=== PATIENT | female | born 1965 | race Caucasian/White ===

== ENCOUNTER 2017-07-11 18:08 | Emergency (ER) | payer BC ==
[2017-07-11] MEDS ORDERED: Sodium Chloride 0.9% 1,000 ML IV ONE (18:26)
[2017-07-11] MEDS ORDERED: Ketorolac 30 MG/ML SDV IVPUSH ONE (18:26)
[2017-07-11 19:28] LABS: CHLORIDE,CL 97 mmol/L (98-110); SODIUM,NA 133 mmol/L (136-146)
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
--- NOTE | 2017-07-13 14:03 | CR ---
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 Site : 1965 Study: XRay Spine Lumbar [id number]/28/2017 7:01:11 PM Ordering Physician: Doctor Mckee Final Report: INDICATION: pain TECHNIQUE: Lumbar spine 3 view COMPARISON: None FINDINGS: Bones: No fractures or significant bone lesions. Joints: Multilevel degenerative changes. Mild rightward curvature. Soft tissues: Unremarkable. IMPRESSION: No acute abnormality of the lumbar spine. Dictated by Rodger Ward MD @ 07/11/2017 7:21:49 PM Dictated by: Rodger Ward MD @ 07/11/2017 19:21:53 (Electronic Signature) Report Signed by Proxy. [facility]
== END 2017-07-11 20:22 | disposition home or self-care (01) ==
LOC: MW.ED 18:08
DX: S30.0XXA Contusion of lower back and pelvis, initial encounter (principal); F17.210 Nicotine dependence, cigarettes, uncomplicated; Y08.89XA Assault by other specified means, initial encounter
CPT/HCPCS: 36415; 72100; 80053; 85025; 96361; 96374; 99284; J1885; J7040; 99283

== ENCOUNTER 2017-07-31 08:55 | Emergency (ER) | payer BC ==
--- NOTE | 2017-07-31 09:18 | EDM.PDOC ---
ED HPI GENERAL MEDICAL PROBLEM - General Chief Complaint: Behavioral/Psych Stated Complaint: MENTAL HEALTH/DEPRESSION Time Seen by Provider: 07/31/17 09:14 Source of Information: Reports: Patient - History of Present Illness INITIAL COMMENTS - FREE TEXT/NARRATIVE: HISTORY AND PHYSICAL: History of present illness: [Patient with history of depression anxiety panic is out of her Xanax and has been having panic attacks her last panic attack was last night generally relieved by Xanax 0.25 milligrams] by mouth twice a day when necessary, she is currently out of her medication and is quite anxious concerning this as she is unable to get in to see Dr. Galeano her primary care provider for about 10 days and does not have medication. She was doing okay from the depression standpoint she has had a recent increase in Celexa from 20 mg to 40 mg 2 weeks ago states she is doing somewhat better however thinks there is more room for improvement in depression standpoint Currently no fever nausea vomiting chills sweats no chest pain shortness breath headache dizziness or palpitation no bowel or urine symptoms no suicidal or homicidal ideation Review of systems: As per history of present illness and below otherwise all systems reviewed and negative. Past medical history: As per history of present illness and as reviewed below otherwise noncontributory. Surgical history: As per history of present illness and as reviewed below otherwise noncontributory. Social history: No reported history of drug or alcohol abuse. Family history: As per history of present illness and as reviewed below otherwise noncontributory. Physical exam: HEENT: Atraumatic, normocephalic, pupils reactive, negative for conjunctival pallor or scleral icterus, mucous membranes moist, throat clear, neck supple, nontender, trachea midline. Lungs: Clear to auscultation, breath sounds equal bilaterally, chest nontender. Heart: S1S2, regular, negative for clicks, rubs, or JVD. Abdomen: Soft, nondistended, nontender. Negative for masses or hepatosplenomegaly. Negative for costovertebral tenderness. Pelvis: Stable nontender. Genitourinary: Deferred. Rectal: Deferred. Extremities: Atraumatic, negative for cords or calf pain. Neurovascular unremarkable. Neuro: Awake, alert, oriented. Cranial nerves II through XII unremarkable. Cerebellum unremarkable. Motor and sensory unremarkable throughout. Exam nonfocal. Diagnostics: [clinical ] Therapeutics: []Continue current medications Xanax 0.25 mg by mouth twice a day when necessary #20 no refill Follow-up with Dr. Galeano for continued management Impression: []Anxiety/panic History of depression on medication Definitive disposition and diagnosis as appropriate pending reevaluation and review of above. 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) Other OB/BYN History: Musculoskeletal History: Reports: None Neurological History: Reports: None Psychiatric History: Reports: None Endocrine/Metabolic History: Reports: None Hematologic History: Reports: None, Other (See Below) Other Hematologic History: vascular surgery Immunologic History: Reports: None Oncologic (Cancer) History: Reports: None Dermatologic History: Reports: None - Past Surgical History Head Surgeries/Procedures: Reports: None HEENT Surgical History: Reports: Tonsillectomy Cardiovascular Surgical History: Reports: None Respiratory Surgical History: Reports: None GI Surgical History: Reports: None Female Surgical History: Reports: None Endocrine Surgical History: Reports: None Neurological Surgical History: Reports: None Musculoskeletal Surgical History: Reports: None Oncologic Surgical History: Reports: None Social & Family History - Family History Family Medical History: Noncontributory - Tobacco Use Smoking Status *Q: Current Every Day Smoker Years of Tobacco use: 30 Packs/Tins Daily: 2 - Caffeine Use Caffeine Use: Reports: Coffee - Recreational Drug Use Recreational Drug Use: Yes Recreational Drug Type: Reports: Marijuana/Hashish Recreational Drug Use Frequency: Daily ED ROS GENERAL - Review of Systems Review Of Systems: ROS reveals no pertinent complaints other than HPI. ED EXAM, GENERAL - Physical Exam Exam: See Below Course - Vital Signs Last Recorded V/S: Last Vital Signs Temp 36.0 C 07/31/17 08:59 Pulse 82 07/31/17 08:59 Resp 18 07/31/17 08:59 BP 147/83 H 07/31/17 08:59 Pulse Ox 99 07/31/17 08:59 Departure - Departure Time of Disposition: : Disposition: Home, Self-Care 01 Condition: Good Clinical Impression: Anxiety, Panic disorder - Discharge Information Referrals: PCP,None [Primary Care Provider] - Additional Instructions: Continue current home medications as directed A prescription for Xanax 0.25 mg by mouth twice a day when necessary #20 no refill is provided Follow-up with Dr. Galeano as scheduled Her nurse is working on checking for earlier available appointment for you, if one may be available Return if symptoms persist or worsen or new concerning symptoms develop The following information is given to patients seen in the emergency department who are being discharged to home. This information is to outline your options for follow-up care. We provide all patients seen in our emergency department with a follow-up referral. The need for follow-up, as well as the timing and circumstances, are variable depending upon the specifics of your emergency department visit. If you don't have a primary care physician on staff, we will provide you with a referral. We always advise you to contact your personal physician following an emergency department visit to inform them of the circumstance of the visit and for follow-up with them and/or the need for any referrals to a consulting specialist. The emergency department will also refer you to a specialist when appropriate. This referral assures that you have the opportunity for follow-up care with a specialist. All of these measure are taken in an effort to provide you with optimal care, which includes your follow-up. Under all circumstances we always encourage you to contact your private physician who remains a resource for coordinating your care. When calling for follow-up care, please make the office aware that this follow-up is from your recent emergency room visit. If for any reason you are refused follow-up, please contact the [facility] emergency department at and asked to speak to the emergency department charge nurse.
== END 2017-07-31 09:27 | disposition home or self-care (01) ==
LOC: MW.ED 08:55
DX: F41.0 Panic disorder [episodic paroxysmal anxiety] (principal); F17.210 Nicotine dependence, cigarettes, uncomplicated; I10 Essential (primary) hypertension; Z79.899 Other long term (current) drug therapy
CPT/HCPCS: 99282; 99283

== ENCOUNTER 2018-11-16 09:28 | Emergency (ER) | payer BC ==
--- NOTE | 2018-11-16 09:59 | EDM.PDOC ---
ED HPI GENERAL MEDICAL PROBLEM - General Chief Complaint: Cardiovascular Problem Stated Complaint: HEART PTOBLEMS Time Seen by Provider: 11/16/18 09:49 - History of Present Illness INITIAL COMMENTS - FREE TEXT/NARRATIVE: HISTORY AND PHYSICAL: History of present illness: The patient is a 53-year-old female with a history of hypertension who follows in our clinic but who also has seen Dr. 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 He told her that she does have a leaky valve and he referred her to see a specialist for further care and evaluation. The patient says she normally takes her blood pressure medication and is compliant with that but she also takes Xanax as needed for anxiety and she ran out of that medication. She said this morning she was scheduled to see her therapist and had a lot of thoughts about what she was talking about which are very upsetting and she started having palpitations. She had no chest pain shortness of breath nausea vomiting or abdominal pain with this episode and currently it is resolved. She is concerned that she does had a small panic attack and wanted to be evaluated. She currently is having no symptomatology. She's been eating and drinking normally and has no fevers. Review of systems: As per history of present illness and below otherwise all systems reviewed and negative. Past medical history: As per history of present illness and as reviewed below otherwise noncontributory. Surgical history: As per history of present illness and as reviewed below otherwise noncontributory. Social history: No reported history of drug or alcohol abuse. Family history: As per history of present illness and as reviewed below otherwise noncontributory. Physical exam: General: Well-developed well-nourished female who is nontoxic and vital signs are noted by me HEENT: Atraumatic, normocephalic, negative for conjunctival pallor or scleral icterus, mucous membranes moist, throat clear, neck supple, nontender, trachea midline. Lungs: Clear to auscultation, breath sounds equal bilaterally, chest nontender. Heart: S1S2, regular rate and rhythm, systolic ejection murmur heard loudest at the upper left sternal border Abdomen: Soft, nondistended, nontender. NABS Pelvis: Deferred Genitourinary: Deferred. Rectal: Deferred. Extremities: Atraumatic, negative for cords or calf pain. Neurovascular unremarkable. No pedal edema or leg asymmetry Neuro: Awake, alert, oriented. Cranial nerves II through XII unremarkable. Cerebellum unremarkable. Motor and sensory unremarkable throughout. Exam nonfocal. Diagnostics: EKG CBC CMP troponin TSH chest x-ray Therapeutics: Patient is aware of all testing results and need to get follow-up with her thyroid function tests as the TSH is just a screening exam. I will give her a few of her Xanax that she normally takes as she does not have a refill and have advised her to follow-up with a provider in the clinic as well as to continue the workup that is in place for her heart murmur and leaky valve. Impression: Episode of palpitations, resolved prior to arrival Definitive disposition and diagnosis as appropriate pending reevaluation and review of above. shoulder blade Pain Score (Numeric/FACES): 4 - Related Data Allergies Allergy/AdvReac Type Severity Reaction Status Date / Time cefaclor [From Ceclor] Allergy Headache Verified 11/16/18 09:35 Home Meds: Home Meds ALPRAZolam [Xanax] 0.25 mg PO BID PRN 07/31/17 [History] ARIPiprazole [Abilify] 60 mg PO DAILY 11/16/18 [History] Levothyroxine 112 mcg PO DAILY 11/16/18 [History] Lisinopril 40 mg PO DAILY 11/16/18 [History] Montelukast Sodium [Singulair] 10 mg PO DAILY 11/16/18 [History] amLODIPine [Norvasc] 10 mg PO DAILY 11/16/18 [History] buPROPion HCl [Wellbutrin Xl] 300 mg PO DAILY 11/16/18 [History] Past Medical History HEENT History: Reports: None Cardiovascular History: Reports: Hypertension Respiratory History: Reports: COPD Gastrointestinal History: Reports: None Genitourinary History: Reports: None 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: , 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 (See Below) 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 LOAD CONTROLLER History: Musculoskeletal History: Reports: None Neurological History: Reports: None Psychiatric History: Reports: Anxiety, Depression Endocrine/Metabolic History: Reports: None Hematologic History: Reports: None, Other (See Below) Other Hematologic History: vascular surgery Immunologic History: Reports: None Oncologic (Cancer) History: Reports: None Dermatologic History: Reports: None - Infectious Disease History Infectious Disease History: Reports: MRSA - Past Surgical History Head Surgeries/Procedures: Reports: None HEENT Surgical History: Reports: Tonsillectomy Cardiovascular Surgical History: Reports: None Respiratory Surgical History: Reports: None GI Surgical History: Reports: None Female Surgical History: Reports: Section Endocrine Surgical History: Reports: None Neurological Surgical History: Reports: None Musculoskeletal Surgical History: Reports: None Oncologic Surgical History: Reports: None Social & Family History - Family History Family Medical History: Noncontributory Cardiac: Reports: CAD - Tobacco Use Smoking Status *Q: Current Every Day Smoker Years of Tobacco use: 35 Packs/Tins Daily: 1.5 - Caffeine Use Caffeine Use: Reports: Coffee - Recreational Drug Use Recreational Drug Use: No ED ROS GENERAL - Review of Systems Review Of Systems: ROS reveals no pertinent complaints other than HPI. ED EXAM, GENERAL - Physical Exam Exam: See Below (See dictation) Course - Vital Signs Last Recorded V/S: Last Vital Signs Temp 35.8 C 11/16/18 09:31 Pulse 78 11/16/18 09:31 Resp 18 11/16/18 09:31 BP 113/64 11/16/18 09:31 Pulse Ox 98 11/16/18 09:31 - Orders/Labs/Meds Orders: Active Orders 24 hr Category Date Time Status Cardiac Monitoring [RC] . DIRECTED Care 11/16/18 09:55 Active EKG Documentation Completion [RC] STAT Care 11/16/18 09:55 Active Oxygen Therapy, ED [RC] ASDIRECTED Care 11/16/18 09:55 Active Pulse Oximetry [RC] ASDIRECTED Care 11/16/18 09:55 Active Labs: Laboratory Tests 11/16/18 11/16/18 Range/Units 10:27 10:27 WBC 7.92 (4.0-11.0) K/uL RBC 4.79 (4.30-5.90) M/uL Hgb 14.6 (12.0-16.0) g/dL Hct 42.1 (36.0-46.0) % MCV 87.9 (80.0-98.0) fL MCH 30.5 (27.0-32.0) pg MCHC 34.7 (31.0-37.0) g/dL RDW Std Deviation 43.9 (28.0-62.0) fl RDW Coeff of Ashlee 14 (11.0-15.0) % Plt Count 304 (150-400) K/uL MPV 9.00 (7.40-12.00) fL Neut % (Auto) 77.7 (48.0-80.0) % Lymph % (Auto) 12.4 L (16.0-40.0) % [place] % (Auto) 8.0 (0.0-15.0) % Eos % (Auto) 1.4 (0.0-7.0) % Baso % (Auto) 0.5 (0.0-1.5) % Neut # (Auto) 6.2 H (1.4-5.7) K/uL Lymph # (Auto) 1.0 (0.6-2.4) K/uL [place] # (Auto) 0.6 (0.0-0.8) K/uL Eos # (Auto) 0.1 (0.0-0.7) K/uL Baso # (Auto) 0.0 (0.0-0.1) K/uL Nucleated RBC % 0.0 /100WBC Nucleated RBCs # 0 K/uL Sodium 136 (136-145) mmol/L Potassium 3.6 (3.5-5.1) mmol/L Chloride 100 (98-107) mmol/L Carbon Dioxide 28.5 (21.0-32.0) mmol/L BUN 12 (7.0-18.0) mg/dL Creatinine 0.9 (0.6-1.0) mg/dL Est Cr Clr Drug Dosing 60.49 mL/min Estimated GFR (MDRD) > 60.0 ml/min Glucose 101 (74-106) mg/dL Calcium 9.1 (8.5-10.1) mg/dL Total Bilirubin 0.3 (0.2-1.0) mg/dL AST 17 (15-37) IU/L ALT 24 (14-63) IU/L Alkaline Phosphatase 81 (46-116) U/L Troponin I < 0.050 (0.000-0.056) ng/mL Total Protein 7.3 (6.4-8.2) g/dL Albumin 3.6 (3.4-5.0) g/dL Globulin 3.7 (2.6-4.0) g/dL Albumin/Globulin Ratio 1.0 (0.9-1.6) TSH 3rd Generation 6.39 H (0.36-3.74) uIU/mL Departure - Departure Time of Disposition: 11:27 Disposition: Home, Self-Care 01 Condition: Good Clinical Impression: Palpitations Referrals: PCP,Unknown [Primary Care Provider] - Forms: ED Department Discharge Additional Instructions: The following information is given to patients seen in the emergency department who are being discharged to home. This information is to outline your options for follow-up care. We provide all patients seen in our emergency department with a follow-up referral. The need for follow-up, as well as the timing and circumstances, are variable depending upon the specifics of your emergency department visit. If you don't have a primary care physician on staff, we will provide you with a referral. We always advise you to contact your personal physician following an emergency department visit to inform them of the circumstance of the visit and for follow-up with them and/or the need for any referrals to a consulting specialist. The emergency department will also refer you to a specialist when appropriate. This referral assures that you have the opportunity for followup care with a specialist. All of these measure are taken in an effort to provide you with optimal care, which includes your followup. Under all circumstances we always encourage you to contact your private physician who remains a resource for coordinating your care. When calling for followup care, please make the office aware that this follow-up is from your recent emergency room visit. If for any reason you are refused follow-up, please contact the [facility] emergency department at and ask to speak to the emergency department charge nurse. [facility] Primary care- Internal Medicine and Family [address] [address] Please call and schedule follow-up with your provider in the clinic for further evaluation of your thyroid and also continue with your pursued a workup of your valve issue. Use Xanax as prescribed and as needed and return to ER as needed and as discussed. - My Orders Last 24 Hours: My Active Orders 11/16/18 09:55 Cardiac Monitoring [RC] . DIRECTED EKG Documentation Completion [RC] STAT Oxygen Therapy, ED [RC] ASDIRECTED Pulse Oximetry [RC] ASDIRECTED - Assessment/Plan Last 24 Hours: My Active Orders 11/16/18 09:55 Cardiac Monitoring [RC] . DIRECTED EKG Documentation Completion [RC] STAT Oxygen Therapy, ED [RC] ASDIRECTED Pulse Oximetry [RC] ASDIRECTED
--- NOTE | 2018-11-16 10:24 | CR ---
INDICATION: Pain/SOB INDICATION: Pain/shortness of breath. TECHNIQUE: Chest 1 view. COMPARISON: None FINDINGS: Cardiovascular and mediastinum: Heart size and vasculature are normal in caliber and appearance. Mediastinum is within normal limits. Lungs and pleural space: Lungs are clear. No sign of infiltrate or mass. No sign of pleural effusion. No pneumothorax. Bones and soft tissues: No significant findings. IMPRESSION: Lungs are clear. Dictated by Tj Bach MD @ 11/16/2018 10:22:32 AM Dictated by: Tj Bach MD @ 11/16/2018 10:22:40 (Electronically Signed)
[2018-11-16 11:12] LABS: CHLORIDE,CL 100 mmol/L (98-107); SODIUM,NA 136 mmol/L (136-145)
== END 2018-11-16 11:40 | disposition home or self-care (01) ==
LOC: MW.ED 09:28
DX: R00.2 Palpitations (principal); I10 Essential (primary) hypertension; J44.9 Chronic obstructive pulmonary disease, unspecified; F17.210 Nicotine dependence, cigarettes, uncomplicated; F41.9 Anxiety disorder, unspecified; F32.9 Major depressive disorder, single episode, unspecified; Z79.899 Other long term (current) drug therapy
CPT/HCPCS: 36415; 71045; 71045-26; 80053; 84443; 84484; 85025; 93005; 99284; 99285-25

== ENCOUNTER 2018-12-16 09:39 | Emergency (ER) | payer OTHER, BC ==
[2018-12-16] MEDS ORDERED: Ketorolac 60 MG/2 ML SDV IM ONE (10:06)
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
--- NOTE | 2018-12-16 11:26 | CR ---
EXAMINATION: Cervical spine HISTORY: Injury COMPARISON: None TECHNIQUE: AP and lateral views FINDINGS: The cervical spinal alignment is normal. The vertebral body heights and disc spaces appear maintained. Bone mineralization is normal. Prevertebral soft tissues are normal. Mild osteophyte formation. IMPRESSION: Mild degenerative changes without acute findings.
--- NOTE | 2018-12-16 11:38 | CR ---
EXAMINATION: PA chest and right RIBS HISTORY: Injury. FINDINGS: The trachea is midline. The cardiomediastinal silhouette is within normal limits. No pulmonary infiltrates, effusions or pneumothorax. Osseous structures appear unremarkable. No displaced rib fracture identified. IMPRESSION: No acute cardiopulmonary process.
--- NOTE | 2018-12-16 11:42 | CR ---
EXAMINATION: Left tibia and fibula HISTORY: Injury COMPARISON: None TECHNIQUE: 2 views FINDINGS/IMPRESSION: There is no acute osseous abnormality, dislocation, or fracture. Bone mineralization and joint spaces are grossly preserved. No focal soft tissue swelling.
== END 2018-12-16 11:52 | disposition home or self-care (01) ==
LOC: MW.ED 09:39
DX: S80.12XA Contusion of left lower leg, initial encounter (principal); S29.9XXA Unspecified injury of thorax, initial encounter; S19.9XXA Unspecified injury of neck, initial encounter; I10 Essential (primary) hypertension; F41.9 Anxiety disorder, unspecified; F32.9 Major depressive disorder, single episode, unspecified; Z79.899 Other long term (current) drug therapy; V89.2XXA Person injured in unspecified motor-vehicle accident, traffic, initial encounter
CPT/HCPCS: 71101; 72040; 73590; 96372; 99284; J1885; J2360

== ENCOUNTER 2018-12-23 11:32 | Emergency (ER) | payer BC ==
--- NOTE | 2018-12-23 13:01 | EDM.PDOCBH ---
ED HPI GENERAL MEDICAL PROBLEM - General Chief Complaint: Behavioral/Psych Stated Complaint: MENTAL HEALTH Time Seen by Provider: 12/23/18 11:59 Source of Information: Reports: Patient History Limitations: Reports: No Limitations - History of Present Illness INITIAL COMMENTS - FREE TEXT/NARRATIVE: HISTORY AND PHYSICAL: History of present illness: Patient is a 53-year-old female who presents to the ED today with concern of not knowing where to go. Patient states she is out of money, does not have housing, and has 2 kids but does not have a place to stay. Patient states she does not know how to help herself and does not know where to go also came to the ED. Patient denies suicidal/homicidal ideation, intent, or plan. Patient denies fever, chills, chest pain, shortness of breath, or cough. Denies headache, neck stiff ness, change in vision, syncope, or near syncope. Denies nausea, vomiting, abdominal pain, diarrhea, constipation, or dysuria. Has not noted any blood in urine or stool. Patient has been eating and drinking appropriately. Review of systems: As per history of present illness and below otherwise all systems reviewed and negative. Past medical history: As per history of present illness and as reviewed below otherwise noncontributory. Surgical history: As per history of present illness and as reviewed below otherwise noncontributory. Social history: See social history for further information Family history: As per history of present illness and as reviewed below otherwise noncontributory. Physical exam: General: Patient is alert, oriented, and in no acute distress. Patient is tearful but sitting comfortably on exam table. HEENT: Atraumatic, normocephalic, pupils equal and reactive bilaterally, negative for conjunctival pallor or scleral icterus, mucous membranes moist, TMs normal bilaterally, throat clear, neck supple, nontender, trachea midline. No drooling or trismus noted. No meningeal signs. No hot potato voice noted. Lungs: Clear to auscultation, breath sounds equal bilaterally, chest nontender. Heart: S1S2, regular rate and rhythm without overt murmur Abdomen: Soft, nondistended, nontender. Negative for masses or hepatosplenomegaly. Negative for costovertebral tenderness. Pelvis: Stable nontender. Genitourinary: Deferred. Rectal: Deferred. Skin: Intact, warm, dry. No lesions or rashes noted. Extremities: Atraumatic, negative for cords or calf pain. Neurovascular unremarkable. Neuro: Awake, alert, oriented. Cranial nerves II through XII unremarkable. Cerebellum unremarkable. Motor and sensory unremarkable throughout. Exam nonfocal. Notes: Pastoral care and social welfare administrator involved in patients case. Patient does not express any homicidal or suicidal thoughts, ideation, plan, or intent. Patient is more concerned about finding a place to stay tonight. Did get pastoral care and social work involved in patient's case. Discussed the importance of follow up with primary care provider. Supportive care measures were reviewed and discussed. Voices understanding and is agreeable to plan of care. Denies any further questions or concerns at this time. Diagnostics: None Therapeutics: None Prescription: None Impression: Social environment concern Plan: 1. Follow up with her primary care provider as discussed. 2. Return to the ED as needed enough discussed. Definitive disposition and diagnosis as appropriate pending reevaluation and review of above. - Related Data Allergies Allergy/AdvReac Type Severity Reaction Status Date / Time cefaclor [From Ceclor] Allergy Headache Verified 11/16/18 09:35 Home Meds: Home Meds ALPRAZolam [Xanax] 0.25 mg PO BID PRN 07/31/17 [History] ARIPiprazole [Abilify] 60 mg PO DAILY 11/16/18 [History] Levothyroxine 112 mcg PO DAILY 11/16/18 [History] Lisinopril 40 mg PO DAILY 11/16/18 [History] Montelukast Sodium [Singulair] 10 mg PO DAILY 11/16/18 [History] amLODIPine [Norvasc] 10 mg PO DAILY 11/16/18 [History] buPROPion HCl [Wellbutrin Xl] 300 mg PO DAILY 11/16/18 [History] Cyclobenzaprine [Flexeril] 10 mg PO TID PRN 3 Days #9 tab 12/16/18 [Rx] Diclofenac Sodium [Voltaren] 75 mg PO BIDMEALS PRN 6 Days #12 tab.cr 12/16/18 [ Rx] Past Medical History HEENT History: Reports: None Cardiovascular History: Reports: Hypertension Respiratory History: Reports: COPD Gastrointestinal History: Reports: None Genitourinary History: Reports: None GENERAL CARGO CLERK History: Reports: , Other (See Below) Other GENERAL CARGO CLERK History: Musculoskeletal History: Reports: None Neurological History: Reports: None Psychiatric History: Reports: Anxiety, Depression Endocrine/Metabolic History: Reports: None Hematologic History: Reports: None, Other (See Below) Other Hematologic History: vascular surgery Immunologic History: Reports: None Oncologic (Cancer) History: Reports: None Dermatologic History: Reports: None - Infectious Disease History Infectious Disease History: Reports: Measles, Mumps - Past Surgical History Head Surgeries/Procedures: Reports: None HEENT Surgical History: Reports: Tonsillectomy Cardiovascular Surgical History: Reports: None Respiratory Surgical History: Reports: None GI Surgical History: Reports: None Female Surgical History: Reports: Section Endocrine Surgical History: Reports: None Neurological Surgical History: Reports: None Musculoskeletal Surgical History: Reports: None Oncologic Surgical History: Reports: None Social & Family History - Family History Family Medical History: Noncontributory Cardiac: Reports: CAD - Tobacco Use Smoking Status *Q: Current Every Day Smoker Years of Tobacco use: 35 Packs/Tins Daily: 1 - Caffeine Use Caffeine Use: Reports: Coffee - Recreational Drug Use Recreational Drug Use: No ED ROS GENERAL - Review of Systems Review Of Systems: ROS reveals no pertinent complaints other than HPI. ED EXAM, BEHAVIORAL HEALTH - Physical Exam Exam: See Below (see dictation) COURSE, BEHAVIORAL HEALTH COMP - Course Vital Signs: Last Vital Signs Temp 36.7 C 12/23/18 11:44 Pulse 86 12/23/18 11:44 Resp 16 12/23/18 11:44 BP 158/95 H 12/23/18 11:44 Pulse Ox 98 12/23/18 11:44 Orders, Labs, Meds: Active Orders 24 hr Category Date Time Status Consult to Case Management/Electromechanical Inspector [CONS] Cons 12/23/18 13:01 Active Routine Departure - Departure Time of Disposition: 13:36 Disposition: Home, Self-Care 01 Clinical Impression: Problem related to social environment - Discharge Information Referrals: Selene Peterson MD [Primary Care Provider] - Forms: ED Department Discharge Additional Instructions: The following information is given to patients seen in the emergency department who are being discharged to home. This information is to outline your options for follow-up care. We provide all patients seen in our emergency department with a follow-up referral. The need for follow-up, as well as the timing and circumstances, are variable depending upon the specifics of your emergency department visit. If you don't have a primary care physician on staff, we will provide you with a referral. We always advise you to contact your personal physician following an emergency department visit to inform them of the circumstance of the visit and for follow-up with them and/or the need for any referrals to a consulting specialist. The emergency department will also refer you to a specialist when appropriate. This referral assures that you have the opportunity for follow-up care with a specialist. All of these measure are taken in an effort to provide you with optimal care, which includes your follow-up. Under all circumstances we always encourage you to contact your private physician who remains a resource for coordinating your care. When calling for follow-up care, please make the office aware that this follow-up is from your recent emergency room visit. If for any reason you are refused follow-up, please contact the [facility] Emergency Department at and asked to speak to the emergency department charge nurse. [facility] [address] [place] [address] [place] [address] 1. Follow-up with your primary care provider or database development project manager as discussed. 2. Return to the ED as needed and as discussed. - My Orders Last 24 Hours: My Active Orders 12/23/18 13:01 Consult to Case Management/Electromechanical Inspector [CONS] Routine - Assessment/Plan Last 24 Hours: My Active Orders 12/23/18 13:01 Consult to Case Management/Electromechanical Inspector [CONS] Routine
== END 2018-12-23 13:47 | disposition home or self-care (01) ==
LOC: MW.ED 11:32
DX: Z60.9 Problem related to social environment, unspecified (principal); F17.210 Nicotine dependence, cigarettes, uncomplicated; I10 Essential (primary) hypertension; J44.9 Chronic obstructive pulmonary disease, unspecified; F41.9 Anxiety disorder, unspecified; F32.9 Major depressive disorder, single episode, unspecified; Z79.899 Other long term (current) drug therapy; Z88.1 Allergy status to other antibiotic agents
CPT/HCPCS: 99281; 99284